=== PATIENT | female | born 1930 | race Caucasian/White ===

== ENCOUNTER 2017-03-05 22:16 | Emergency (ER) | payer MEDICARE ==
[~2017-03-05] VITALS: Ht 154.9 cm; Wt 79.5 kg
[~2017-03-05 22:16] MED LIST: ALPR0.5T3 PO; ASPI81 PO; COZA100T PO; HYDR10TA23 PO; METO100T PO; NITR0.4D2 TD; SIMV40TA PO
[2017-03-05 22:18] VITALS: BP 177/74; PULSE 60; RESP 18; TEMP 97.7; O2SAT 95
[2017-03-05] MEDS ORDERED: LOSA100T PO (22:32)
[2017-03-05] MEDS ORDERED: METO100T PO (22:32)
[2017-03-05] MEDS ORDERED: ALPR.5 PO (22:32)
[2017-03-05] MEDS ORDERED: NITR0.4D T-DERMAL (22:32)
[2017-03-05] MEDS ORDERED: HYDR25TA5 PO (22:32)
[2017-03-05] MEDS ORDERED: AMLO5TAB2 PO (22:32)
[2017-03-05] MEDS ORDERED: ZOFR4TAB PO (22:32)
[2017-03-05] MEDS ORDERED: CLON0.1T PO (22:32)
[2017-03-05] MEDS ORDERED: HYDR-3798 PO (22:32)
--- NOTE | 2017-03-05 22:43 | PD ---
HPI Chief Complaint: Hypertension Time Seen by Provider: 22:28 Travel History International Travel<30 days: No Contact w/Intl Traveler<30days: No Traveled to known affect area: No History of Present Illness HPI This 86-year-old female is complaining of high blood pressure. She has a history of hypertension for many years. She has been on a lot of medications. Today she was started on hydralazine 10 mg twice a day. She is on Lopressor and losartan. She has been on amlodipine 5 mg daily but had developed some edema so that was being cut back. She says she's been under a lot of stress. She has a prescription for Xanax but is reluctant to take it. She has a history of coronary bypass in 1999. She does get headaches when her blood pressure is up. She generally checks her blood pressure at home but her meter broke today. She called the fire department check her blood pressure was quite elevated so she is coming she did take clonidine 0.1 prior to coming in and now her blood pressure has come down. She gets occasional headaches and her blood pressure. He was recently cut back from amlodipine 5 twice a day PFS Past Medical History Arthritis: Yes (A LITTLE) Anxiety: Yes Heart Rhythm Problems: Yes Cancer: No Cardiovascular Problems: Yes High Cholesterol: Yes Chest Pain: Yes Congestive Heart Failure: No Coronary Artery Disease: Yes Diabetes: Yes (borderline per patient) Patient Takes Glucophage: No Diminished Hearing: No Gastrointestinal Disorders: No GERD: Yes Glaucoma: No Genitourinary: No Hepatitis: No Hiatal Hernia: No Hypertension: Yes Medical other: Yes (NAUSEA CHRONICALLY, GERD) Musculoskeletal: Yes (LOSING BALANCE LATELY) Neurologic: No Reproductive: No Respiratory: Yes (SLEEP APNEA) Integumentary: No Myocardial Infarction: Yes Sleep Apnea: Yes Thyroid Disease: No Ulcer: Yes (YEARS AGO) Tetanus Vaccination: Unknown Influenza Vaccination: No Menopausal: Yes Past Surgical History Abdominal Surgery: No Cardiac Surgery: Yes (CABG 1999) Ear Surgery: No Endocrine Surgery: No Eye Surgery: Yes (LEFT EYE CATARACT EXTRACT.) Genitourinary Surgery: No Gynecologic Surgery: Yes (UTERINE POLYPECTOMY) Oral Surgery: Yes (TEETH REMOVED) Pacemaker: No Thoracic Surgery: No Other Surgery: Yes Social History Alcohol Use: No Tobacco Use: Yes (FORMER) Substance Use: No Allergies-Medications (Allergen,Severity, Reaction): Coded Allergies: Benadryl (Unverified Allergy, Severe, RASH, 03/05/17) Darvon (Verified Allergy, Severe, 03/05/17) Iodine (Verified Allergy, Severe, 03/05/17) Iohexol (OMNIPAQUE) (Unverified Allergy, Severe, 03/05/17) Phenergan (Verified Allergy, Severe, 03/05/17) Compazine (Unverified Adverse Reaction, Severe, VERTIGO, , 03/05/17) Reported Meds & Prescriptions Reported Meds & Active Scripts Active Ativan (Lorazepam) 0.5 Mg Tab 0.5 Mg PO Q6H PRN Reported Xanax (Alprazolam) 0.5 Mg Tab 0.5 Mg PO HS PRN Hydrochlorothiazide 25 Mg Tab 25 Mg PO DAILY Clonidine (Clonidine HCl) 0.1 Mg Tab 0.1 Mg PO Metoprolol Tartrate 100 Mg Tab 100 Mg PO BID Amlodipine (Amlodipine Besylate) 5 Mg Tab 5 Mg PO DAILY Hydralazine HCl 10 Mg Tablet 10 Mg PO BID Losartan (Losartan Potassium) 100 Mg Tab 100 Mg PO DAILY Nitro-Dur Patch 24 HR (Nitroglycerin) 0.4 Mg/Hr Patch 0.4 Mg T-DERMAL DAILY Zofran (Ondansetron HCl) 4 Mg Tab 4 Mg PO Q6HR PRN Review of Systems General / Constitutional: No: Fever, Chills Eyes: No: Diploplia, Blurred Vision HENT: Positive: Headaches Cardiovascular: No: Chest Pain or Discomfort, Palpitations Respiratory: No: Cough, Shortness of Breath Gastrointestinal: No: Nausea, Vomiting Genitourinary: No: Urgency, Frequency Musculoskeletal: No: Myalgias, Arthralgias Skin: No Rash, No Itching Neurologic: No: Focal Abnormalities Psychiatric: Positive: Anxiety Endocrine: No: Cold Intolerance Hematologic/Lymphatic: No: Easy Bruising Physical Exam Narrative GENERAL: Well-developed female SKIN: Focused skin assessment warm/dry. HEAD: Atraumatic. Normocephalic. EYES: Pupils equal and round. No scleral icterus. No injection or drainage. ENT: No nasal bleeding or discharge. Mucous membranes pink and moist. NECK: Trachea midline. No JVD. CARDIOVASCULAR: Regular rate and rhythm. No murmur appreciated. RESPIRATORY: No accessory muscle use. Clear to auscultation. Breath sounds equal bilaterally. GASTROINTESTINAL: Abdomen soft, non-tender, nondistended. Hepatic and splenic margins not palpable. MUSCULOSKELETAL: No obvious deformities. No clubbing. No cyanosis. Bilateral trace edema NEUROLOGICAL: Awake and alert. No obvious cranial nerve deficits. Motor grossly within normal limits. Normal speech. PSYCHIATRIC: Appropriate mood and affect; insight and judgment normal. Data Data Last Documented VS Vital Signs Date Time Temp Pulse Resp B/P Pulse Ox O2 Delivery O2 Flow Rate FiO2 03/05/17 22:35 57 97 Room Air 03/05/17 22:18 97.7 18 177/74 Orders Electrocardiogram (03/05/17 22:37) Complete Blood Count With Diff (03/05/17 22:37) Basic Metabolic Panel (Bmp) (03/05/17 22:37) B-Type Natriuretic Peptide (03/05/17 22:37) Labs Laboratory Tests Test 03/05/17 22:55 White Blood Count 9.8 TH/MM3 Red Blood Count 4.66 MIL/MM3 Hemoglobin 13.6 GM/DL Hematocrit 40.0 % Mean Corpuscular Volume 85.8 FL Mean Corpuscular Hemoglobin 29.1 PG Mean Corpuscular Hemoglobin 34.0 % Concent Red Cell Distribution Width 12.5 % Platelet Count 217 TH/MM3 Mean Platelet Volume 8.8 FL Neutrophils (%) (Auto) 72.9 % Lymphocytes (%) (Auto) 20.1 % Monocytes (%) (Auto) 5.4 % Eosinophils (%) (Auto) 1.1 % Basophils (%) (Auto) 0.5 % Neutrophils # (Auto) 7.2 TH/MM3 Lymphocytes # (Auto) 2.0 TH/MM3 Monocytes # (Auto) 0.5 TH/MM3 Eosinophils # (Auto) 0.1 TH/MM3 Basophils # (Auto) 0.0 TH/MM3 CBC Comment DIFF FINAL Differential Comment Sodium Level 136 MEQ/L Potassium Level 3.6 MEQ/L Chloride Level 98 MEQ/L Carbon Dioxide Level 28.7 MEQ/L Anion Gap 9 MEQ/L Random Glucose 101 MG/DL Calcium Level 8.3 MG/DL [facility] Medical Decision Making Medical Screen Exam Complete: Yes Emergency Medical Condition: Yes Medical Record Reviewed: Yes Differential Diagnosis Differential includes hypertension, anxiety Narrative Course Has a history of hypertension. She is better off long-acting medication. I will recommend that she resume Norvasc 5 mg twice daily. He is also requesting medication for anxiety. She has a prescription for Xanax but is reluctant to take it. I will prescribe some Ativan Diagnosis Primary Impression: Hypertension Qualified Code: I10 - Essential hypertension Additional Impression: Anxiety Scripts Lorazepam (Ativan)0.5 Mg Tab0.5 Mg PO Q6H PRN (ANXIETY AND/OR AGITATION) #15 TAB Ref 0 Prov:Luis Dominguez MD 03/05/17 Disposition: 01 DISCHARGE HOME Condition: Stable Luis Dominguez MD Mar 05, 2017 22:43
[2017-03-05 23:04] LABS: AUTOMATED NEUTROPHIL # 7.2 TH/MM3 (1.8-7.7); BASOPHIL % 0.5 % (0.0-2.0); EOSINOPHIL # 0.1 TH/MM3 (0-0.4); EOSINOPHIL % 1.1 % (0.0-4.0); HEMO FLAGS DIFF FINAL; LYMPH % 20.1 % (9.0-44.0); MEAN CELL VOLUME 85.8 FL (80.0-100.0); MEAN CORPUSCULAR HEMOGLOBIN 29.1 PG (27.0-34.0); MONO % 5.4 % (0.0-8.0); NEUT % 72.9 % (16.0-70.0); PLATELET COUNT 217 TH/MM3 (150-450); RED BLOOD COUNT 4.66 MIL/MM3 (4.00-5.30); RED CELL DISTRIBUTION WIDTH 12.5 % (11.6-17.2); WHITE BLOOD COUNT 9.8 TH/MM3 (4.0-11.0)
[2017-03-05 23:11] LABS: POTASSIUM 3.6 MEQ/L (3.5-5.1)
[2017-03-05] MEDS ORDERED: LORA-392 PO (23:13)
[2017-03-05 23:14] LABS: BICARBONATE 28.7 MEQ/L (21.0-32.0)
[2017-03-05 23:36] VITALS: BP 157/85
--- NOTE | 2017-03-06 13:11 | EKG ---
Date Performed: 03/05/2017 Time Performed: 22:44:24 PTAGE: 86 years EKG: SINUS BRADYCARDIA ST DEVIATION AND MODERATE T-WAVE ABNORMALITY, CONSIDER LATERAL ISCHEMIA A BNORMAL ECG PREVIOUS TRACING : 04/09/2014 10.32 Compared to prior tracing no significant change DOCTOR: [place] Interpretating Date/Time 03/06/2017 13:09:50
== END 2017-03-06 00:02 | disposition home or self-care (01) ==
LOC: PHED 22:16
DX: I10 Essential (primary) hypertension (principal); F41.9 Anxiety disorder, unspecified; E78.00 Pure hypercholesterolemia, unspecified; E11.9 Type 2 diabetes mellitus without complications; I25.10 Atherosclerotic heart disease of native coronary artery without angina pectoris; I25.2 Old myocardial infarction; Z95.1 Presence of aortocoronary bypass graft; Z87.891 Personal history of nicotine dependence
CPT/HCPCS: 80048; 83880; 85025; 93005; 99284